=== PATIENT | female | born 1990 | race Caucasian/White ===

== ENCOUNTER 2023-01-31 13:08 | Emergency (ER) | payer SELFPAY ==
[2023-01-31 13:10] VITALS: BP 118/81
--- NOTE | 2023-01-31 13:39 | ED General ---
General Chief Complaint: Abdominal/GI Problems Stated Complaint: HYPERGLYCEMIA Nursing Triage Note: pt sent over via EMS from [facility] so c/o right flank pain and SOB x 1mo that's been getting progressively worse. pt woke up this morning with night sweats and pain upon inhalation. pt has hx of PEs and DVTs, most recent one was 6mo ago. pt has been without eliquis x 2 weeks. Source of Information: Patient Exam Limitations: No Limitations History of Present Illness Date Seen by Provider: Jan 31, 2023 Time Seen by Provider: 13:25 Initial Comments Patient is a 32-year-old female who presents to the emergency room with a chief complaint of right sided thoracic back pain just under her right shoulder blade onset x1 to 2 months. Patient states its been progressively getting worse, she takes Tylenol and ibuprofen without relief of symptoms. She went to [facility] walk-in today and they sent her to the emergency room for further evaluation. Patient has a history of multiple prior DVTs and pulmonary emboli. She states that she has been off of her blood thinners but restarted them about 2 weeks ago. She has significant financial challenges. She states her pain is worsened by movement and deep breath. No fevers or chills. No productive cough, no URI symptoms. Denies any dysuria, hematuria. States that she had a "miscarriage" a bout 2 weeks ago. No menstrual cycle since then. The provider at [facility] was concerned that she might have a blood clot in her kidney. On arrival patient is very agitated. Anxious because she has not had a cigarette all day. History of methamphetamine abuse. Timing/Duration: Other (1-2 months) Severity: Moderate (pain an "8") Modifying Factors: worse with Movement Associated Systoms: Shortness of Air (hurts to take a deep breath) Allergies and Home Medications Allergies Coded Allergies: gabapentin (Verified Allergy, Unknown, 01/31/23) Patient Home Medication List Home Medication List Reviewed: Yes Review of Systems Review of Systems Constitutional: see HPI EENTM: no symptoms reported Respiratory: short of breath Cardiovascular: other (righ tposterior rib pain) Gastrointestinal: no symptoms reported Genitourinary: no symptoms reported : No Musculoskeletal: back pain (right thoracic radiating don to hip) Skin: no symptoms reported Psychiatric/Neurological: Anxiety All Other Systems Reviewed Negative Unless Noted: Yes Past Janexsb-Onufaa-Geblpz Hx Patient Social History Tobacco Use?: Yes Tobacco type used: Cigarettes Smoking Status: Current Everyday Smoker Substance use?: Yes Substance type: Methamphetamine Alcohol Use?: No Pt feels they are or have been: No Physical Exam Vital Signs Vital Signs - First Documented 01/31/23 13:10 Pulse 87 Resp 18 B/P (MAP) 118/81 (93) Pulse Ox 95 O2 Delivery Room Air Capillary Refill : Less Than 3 Seconds Height, Weight, BMI Height: '" Weight: lbs. oz. kg; BMI Method: General Appearance: WD/WN, Anxious, Chronically ill Eyes: Bilateral Eye Normal Inspection, Bilateral Eye PERRL, Bilateral Eye EOMI HEENT: PERRL/EOMI Neck: Full Range of Motion Respiratory: Lungs Clear, Normal Breath Sounds, No Accessory Muscle Use, No Respiratory Distress Cardiovascular: Regular Rate, Rhythm, Normal Peripheral Pulses Gastrointestinal: Normal Bowel Sounds, Soft; No Distended; Tenderness (RUQ) Back: Normal Inspection, CVA Tenderness (R) Extremity: Normal Capillary Refill, Normal Inspection, Normal Range of Motion, Non Tender, Pedal Edema (1-2+ bilaterally L>R) Neurologic/Psychiatric: Alert, Oriented x3, No Motor/Sensory Deficits, 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 Norm as Tested, Other (anxious) Skin: Normal Color, Warm/Dry, Other (dirty, disshevelled and unkempt) Progress/Results/Core Measures Suspected Sepsis SIRS Temperature: Pulse: 87 Respiratory Rate: 18 Laboratory Tests 01/31/23 13:43: White Blood Count 8.6 Blood Pressure 118 /81 Mean: 93 Laboratory Tests 01/31/23 13:43: Creatinine 0.79, Platelet Count 323, Total Bilirubin 0.1 Results/Orders Lab Results Laboratory Tests Test 01/31/23 13:34 01/31/23 13:43 Range/Units Urine Color YELLOW Urine Clarity CLEAR Urine pH 7.0 5-9 Urine Specific [place] 1.015 L 1.016-1.022 Urine Protein NEGATIVE NEGATIVE Urine Glucose (UA) 3+ H NEGATIVE Urine Ketones NEGATIVE NEGATIVE Urine Nitrite NEGATIVE NEGATIVE Urine Bilirubin NEGATIVE NEGATIVE Urine Urobilinogen 0.2 < = 1.0 MG/DL Urine Leukocyte Esterase NEGATIVE NEGATIVE Urine RBC (Auto) NEGATIVE NEGATIVE Urine RBC NONE /HPF Urine WBC NONE /HPF Urine Squamous Epithelial Cells RARE /HPF Urine Crystals NONE /LPF Urine Bacteria NEGATIVE /HPF Urine Casts NONE /LPF Urine Mucus NEGATIVE /LPF Urine Culture Indicated NO White Blood Count 8.6 4.3-11.0 10^3/uL Red Blood Count 4.20 3.80-5.11 10^6/uL Hemoglobin 11.7 11.5-16.0 g/dL Hematocrit 35 35-52 % Mean Corpuscular Volume 84 80-99 fL Mean Corpuscular Hemoglobin 28 25-34 pg Mean Corpuscular Hemoglobin Concent 33 32-36 g/dL Red Cell Distribution Width 14.0 10.0-14.5 % Platelet Count 323 130-400 10^3/uL Mean Platelet Volume 11.7 9.0-12.2 fL Immature Granulocyte % (Auto) 0 % Neutrophils (%) (Auto) 79 H 42-75 % Lymphocytes (%) (Auto) 16 12-44 % Monocytes (%) (Auto) 5 0-12 % Eosinophils (%) (Auto) 0 0-10 % Basophils (%) (Auto) 0 0-10 % Neutrophils # (Auto) 6.8 1.8-7.8 10^3/uL Lymphocytes # (Auto) 1.4 1.0-4.0 10^3/uL Monocytes # (Auto) 0.4 0.0-1.0 10^3/uL Eosinophils # (Auto) 0.0 0.0-0.3 10^3/uL Basophils # (Auto) 0.0 0.0-0.1 10^3/uL Immature Granulocyte # (Auto) 0.0 0.0-0.1 10^3/uL Sodium Level 139 135-145 MMOL/L Potassium Level 5.0 3.6-5.0 MMOL/L Chloride Level 107 98-107 MMOL/L Carbon Dioxide Level 21 21-32 MMOL/L Anion Gap 11 5-14 MMOL/L Blood Urea Nitrogen 17 7-18 MG/DL Creatinine 0.79 0.60-1.30 MG/DL Estimat Glomerular Filtration Rate 103 BUN/Creatinine Ratio 22 Glucose Level 335 H 70-105 MG/DL Calcium Level 8.7 8.5-10.1 MG/DL Corrected Calcium 9.3 8.5-10.1 MG/DL Total Bilirubin 0.1 0.1-1.0 MG/DL Aspartate Amino Transf (AST/SGOT) 21 5-34 U/L Alanine Aminotransferase (ALT/SGPT) 16 0-55 U/L Alkaline Phosphatase 112 40-136 U/L Total Protein 6.6 6.4-8.2 GM/DL Albumin 3.2 3.2-4.5 GM/DL Serum Test, Qualitative NEGATIVE NEGATIVE My Orders Orders - JOHNNY CORRALES MD Ed Iv/Invasive Line Start (01/31/23 13:33) Cbc With Automated Diff (01/31/23 13:33) Comprehensive Metabolic Panel (01/31/23 13:33) Ua Culture If Indicated (01/31/23 13:33) Chest 1 View, Ap/Pa Only (01/31/23 13:33) Hcg,Qualitative Serum (01/31/23 13:33) Acetaminophen Tablet (Tylenol Tablet) (01/31/23 14:00) Hydroxyzine Cap/Tab (Vistaril) (01/31/23 14:15) Vital Signs/I&O 01/31/23 13:10 Pulse 87 Resp 18 B/P (MAP) 118/81 (93) Pulse Ox 95 O2 Delivery Room Air Capillary Refill : Less Than 3 Seconds Blood Pressure Mean: 93 Progress Note : Time: 14:23 Progress Note Notified by the patient's nurse, DIANA Guillen, that the patient chose to leave AMA. I had *just* been in the room to talk to her about her pain and anxiety. SHe had asked for tylenol and I offered VIstaril for her anxiety. She consented, then when Mindy brought them in to her, she declined and stated she wanted to leave, "because I havent had a cigarrette all day". Patient ambulated out of the department. Evaluation today includes physical exam, CBC, Chem-12, UA, chest x-ray. Differential diagnosis based on physical examination includes pyelonephritis, kidney stone, thrombosis of kidney. Labs reviewed, CBC within normal limits, chemistry shows elevated glucose at 335, normal renal function. No electrolyte disturbance. Urine shows 3+ glucose without any other abnormality. Patient had left AMA prior to chest x-ray and further imaging to evaluate abdomen/flank pain. Departure Impression Primary Impression: Right-sided thoracic back pain Qualified Codes: M54.6 - Pain in thoracic spine; G89.29 - Other chronic pain Additional Impressions: Hyperglycemia due to diabetes mellitus Medical non-compliance History of methamphetamine abuse Disposition: 07 AGAINST MEDICAL ADVICE Condition: Against Medical Advice JOHNNY CORRALES MD Jan 31, 2023 13:39
[2023-01-31 13:40] LABS: BILIRUBIN,URINE NEGATIVE (NEGATIVE); CLARITY,URINE CLEAR; COLOR,URINE YELLOW; GLUCOSE, URINE (UA) 3+ (NEGATIVE); KETONES,URINE NEGATIVE (NEGATIVE); LEUKOCYTE ESTERASE ,URINE NEGATIVE (NEGATIVE); NITRITE,URINE NEGATIVE (NEGATIVE); PROTEIN,URINE NEGATIVE (NEGATIVE)
[2023-01-31] MEDS: ACETAMINOPHEN 500 MG TAB (TYLENOL) PO ONE ×2 (14:06→14:07)
[2023-01-31] MEDS: hydrOXYzine (VISTARIL/ATARAX) 25 MG capsule/tablet PO ONE ×2 (14:06→14:07)
[2023-01-31 14:09] LABS: BACTERIA,URINE NEGATIVE /HPF; SQUAMOUS EPITHELIAL CELL,UR RARE /HPF
[2023-01-31 14:09] LABS: BASOPHILS % (AUTO) 0 % (0-10); EOSINOPHILS % (AUTO) 0 % (0-10); HEMATOCRIT 35 % (35-52); HEMOGLOBIN 11.7 g/dL (11.5-16.0); LYMPHOCYTES # (AUTO) 1.4 10^3/uL (1.0-4.0); LYMPHOCYTES % (AUTO) 16 % (12-44); MEAN CORPUSCULAR HEMOGLOBIN 28 pg (25-34); MEAN CORPUSCULAR HGB CONC 33 g/dL (32-36); MEAN CORPUSCULAR VOLUME 84 fL (80-99); MEAN PLATELET VOLUME 11.7 fL (9.0-12.2); MONOCYTES # (AUTO) 0.4 10^3/uL (0.0-1.0); MONOCYTES % (AUTO) 5 % (0-12); NEUTROPHILS # (AUTO) 6.8 10^3/uL (1.8-7.8); NEUTROPHILS % (AUTO) 79 % (42-75); PLATELET COUNT 323 10^3/uL (130-400); WHITE BLOOD COUNT 8.6 10^3/uL (4.3-11.0)
[2023-01-31 14:15] LABS: ALBUMIN 3.2 GM/DL (3.2-4.5)
[2023-01-31 14:17] LABS: CALCIUM 8.7 MG/DL (8.5-10.1)
[2023-01-31 14:18] LABS: TOTAL PROTEIN 6.6 GM/DL (6.4-8.2)
[2023-01-31 14:20] LABS: BILIRUBIN,TOTAL 0.1 MG/DL (0.1-1.0)
[2023-01-31 14:22] LABS: CREATININE SERUM 0.79 MG/DL (0.60-1.30)
== END 2023-01-31 14:15 | disposition left against medical advice (07) ==
LOC: ER 13:12
DX: M54.6 Pain in thoracic spine (principal); E11.65 Type 2 diabetes mellitus with hyperglycemia; F15.11 Other stimulant abuse, in remission; F17.210 Nicotine dependence, cigarettes, uncomplicated; Z91.199 Patient's noncompliance with other medical treatment and regimen due to unspecified reason; Z28.310 Unvaccinated for COVID-19
CPT/HCPCS: 36415; 80053; 81000; 84703; 85025

== ENCOUNTER 2023-03-09 13:29 | Inpatient (IN) | payer OTHER ==
[~2023-03-09] VITALS: Ht 170 cm; Wt 83.0 kg
--- NOTE | 2023-03-09 13:51 | ED Chest Pain ---
General Chief Complaint: General Problems/Pain Stated Complaint: LOWER BACK PAIN | COUGHING UP BLOOD Nursing Triage Note: PT AMB TO ROOM 3 PT STATES HAS BEEN COUGHING UP BLOOD, STATES HAS PE AND TUMOR IN BILATERAL LOWER LOBES. PT STATES HAS BEEN COUGHING UP BLOOD FOR A COUPLE DAYS. PT STATES TAKES ELIQUIS FOR PE. PT STATES HAS JUST FINISHED LEVAQUIN. PT WAS BROUGHT TO ED BY [facility] INSTEAD OF GOING TO [facility]. Source: patient Exam Limitations: no limitations History of Present Illness Date Seen by Provider: Mar 09, 2023 Time Seen by Provider: 13:48 Initial Comments Patient is a 32-year-old female with a history of methamphetamine use who presents ED for coughing up blood. She states she was seen here mid january for right upper thoracic back pain and had some blood in her sputum at that time. That improved until yesterday when she was coughing up bright red blood 1 episode and 2 episodes today. She was sent over from [facility]. She currently falls up with Dr. Pollard in [place]. states she has been coughing over the past few weeks. History of smoking. she states she has right upper thoracic back pain over the past year with associated shortness of breath and right sided chest pain with exertion. She was diagnosed with a PE currently on Eliquis. She states she has lesions on her liver. She has a history of thyroidectomy and cholecystectomy with a history of thyroid cancer. She believes she developed the PE secondary to her Port-A-Cath removal. patient denies fever, headache, dizziness, visual changes, unilateral muscle weakness or sensory changes. Currently using meth. Type I diabetic did use insulin today. Patient states she recently finished Levaquin secondary to fluid in her lungs. Allergies and Home Medications Allergies Coded Allergies: gabapentin (Verified Allergy, Unknown, 01/31/23) Patient Home Medication List Home Medication List Reviewed: Yes Divalproex Sodium (Divalproex Sodium) 250 Mg Tablet., 250 MG PO TID, (Reported) Entered as Reported by: HERMAN THOMAS on 03/09/23 630 Last Action: New Order Review of Systems Review of Systems Constitutional: No chills, No diaphoresis EENTM: No Eye Pain, No Mouth Pain, No Mouth Swelling Respiratory: Cough, Shortness of Air Cardiovascular: Chest Pain Gastrointestinal: Denies Abdominal Pain, Denies Diarrhea, Denies Nausea, Denies Vomiting Genitourinary: Denies Burning, Denies Discharge Musculoskeletal: No back pain, No joint pain Skin: No change in color, No change in hair/nails All Other Systems Reviewed Negative Unless Noted: Yes Physical Exam Vital Signs Vital Signs - First Documented 03/09/23 13:38 Temp 36.4 Pulse 90 Resp 16 B/P (MAP) 120/74 (89) Pulse Ox 100 Capillary Refill : Less Than 3 Seconds Height, Weight, BMI Height: '" Weight: lbs. oz. kg; 28.00 BMI Method: General Appearance: No Apparent Distress, WD/WN HEENT: PERRL/EOMI, TMs Normal, Normal ENT Inspection, Pharynx Normal Neck: Full Range of Motion, Normal Inspection, Non Tender, Supple Respiratory: Chest Non Tender, Lungs Clear, Normal Breath Sounds, Other (Right upper posterior neck tenderness) Cardiovascular: No Edema, No Gallop, No JVD, Tachycardia Gastrointestinal: Normal Bowel Sounds, No Organomegaly, No Pulsatile Mass, Non Tender Extremity: Normal Capillary Refill, Normal Inspection, Normal Range of Motion, Non Tender Neurologic/Psychiatric: Alert, Oriented x3, No Motor/Sensory Deficits, Normal 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, 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 Norm as Tested Skin: Normal Color, Warm/Dry Progress/Results/Core Measures Results/Orders Lab Results Laboratory Tests Test 03/09/23 14:03 03/09/23 14:30 03/09/23 14:40 03/09/23 15:41 Range/Units Glucometer 501 *H 70-110 MG/DL White Blood Count 10.5 4.3-11.0 10^3/uL Red Blood Count 4.71 3.80-5.11 10^6/uL Hemoglobin 12.8 11.5-16.0 g/dL Hematocrit 41 35-52 % Mean Corpuscular Volume 86 80-99 fL Mean Corpuscular Hemoglobin 27 25-34 pg Mean Corpuscular Hemoglobin Concent 32 32-36 g/dL Red Cell Distribution Width 13.2 10.0-14.5 % Platelet Count 303 130-400 10^3/uL Mean Platelet Volume 11.4 9.0-12.2 fL Immature Granulocyte % (Auto) 1 % Neutrophils (%) (Auto) 77 H 42-75 % Lymphocytes (%) (Auto) 18 12-44 % Monocytes (%) (Auto) 3 0-12 % Eosinophils (%) (Auto) 1 0-10 % Basophils (%) (Auto) 0 0-10 % Neutrophils # (Auto) 8.0 H 1.8-7.8 10^3/uL Lymphocytes # (Auto) 1.9 1.0-4.0 10^3/uL Monocytes # (Auto) 0.3 0.0-1.0 10^3/uL Eosinophils # (Auto) 0.1 0.0-0.3 10^3/uL Basophils # (Auto) 0.0 0.0-0.1 10^3/uL Immature Granulocyte # (Auto) 0.1 0.0-0.1 10^3/uL Prothrombin Time 13.3 12.2-14.7 SEC INR Comment 1.0 0.8-1.4 Activated Partial Thromboplast Time 27 24-35 SEC Sodium Level 130 L 135-145 MMOL/L Potassium Level 5.9 H 3.6-5.0 MMOL/L Chloride Level 97 L 98-107 MMOL/L Carbon Dioxide Level 19 L 21-32 MMOL/L Anion Gap 14 5-14 MMOL/L Blood Urea Nitrogen 20 H 7-18 MG/DL Creatinine 1.25 0.60-1.30 MG/DL Estimat Glomerular Filtration Rate 59 BUN/Creatinine Ratio 16 Glucose Level 594 *H 70-105 MG/DL Calcium Level 8.3 L 8.5-10.1 MG/DL Corrected Calcium 8.8 8.5-10.1 MG/DL Magnesium Level 1.8 1.6-2.4 MG/DL Total Bilirubin 0.3 0.1-1.0 MG/DL Aspartate Amino Transf (AST/SGOT) 22 5-34 U/L Alanine Aminotransferase (ALT/SGPT) 22 0-55 U/L Alkaline Phosphatase 113 40-136 U/L Myoglobin 27.3 10.0-92.0 NG/ML Troponin I < 0.028 <0.028 NG/ML B-Type Natriuretic Peptide 11.9 <100.0 PG/ML Total Protein 6.5 6.4-8.2 GM/DL Albumin 3.4 3.2-4.5 GM/DL Lipase 4 L 8-78 U/L Beta-Hydroxybutyrate (Chem panel) 3.03 H 0.00-0.27 MMOL/L Urine Color YELLOW Urine Clarity CLEAR Urine pH 6.0 5-9 Urine Specific [place] <=1.005 1.016-1.022 Urine Protein NEGATIVE NEGATIVE Urine Glucose (UA) 3+ H NEGATIVE Urine Ketones 2+ H NEGATIVE Urine Nitrite NEGATIVE NEGATIVE Urine Bilirubin NEGATIVE NEGATIVE Urine Urobilinogen 0.2 < = 1.0 MG/DL Urine Leukocyte Esterase NEGATIVE NEGATIVE Urine RBC (Auto) 2+ H NEGATIVE Urine RBC 5-10 H /HPF Urine WBC NONE /HPF Urine Squamous Epithelial Cells RARE /HPF Urine Crystals NONE /LPF Urine Bacteria NEGATIVE /HPF Urine Casts NONE /LPF Urine Mucus NEGATIVE /LPF Urine Culture Indicated NO Urine Opiates Screen POSITIVE H NEGATIVE Urine Oxycodone Screen NEGATIVE NEGATIVE Urine Methadone Screen NEGATIVE NEGATIVE Urine Propoxyphene Screen NEGATIVE NEGATIVE Urine Barbiturates Screen NEGATIVE NEGATIVE Ur Tricyclic Antidepressants Screen POSITIVE H NEGATIVE Urine Phencyclidine Screen NEGATIVE NEGATIVE Urine Amphetamines Screen POSITIVE H NEGATIVE Urine Methamphetamines Screen POSITIVE H NEGATIVE Urine Benzodiazepines Screen NEGATIVE NEGATIVE Urine Cocaine Screen NEGATIVE NEGATIVE Urine Cannabinoids Screen NEGATIVE NEGATIVE Blood Gas Puncture Site LEFT RADIAL Blood Gas Patient Temperature 37 Arterial Blood pH 7.36 L 7.37-7.43 Arterial Blood Partial Pressure CO2 36 35-45 MMHG Arterial Blood Partial Pressure O2 80 79-93 MMHG Arterial Blood HCO3 20 L 23-27 MMOL/L Arterial Blood Total CO2 20.7 L 21.0-31.0 MMOL/L Arterial Blood Oxygen Saturation 96 94-100 % Arterial Blood Base Excess -4.9 L -2.5-2.5 MMOL/L Surjit Test POSITIVE Blood Gas Ventilator Setting NO Blood Gas Inspired Oxygen N/A Test 03/09/23 16:25 Range/Units Glucometer 405 *H 70-110 MG/DL My Orders Orders - SOFI ARAIZA Cbc With Automated Diff (03/09/23 13:46) Magnesium (03/09/23 13:46) Ekg Tracing (03/09/23 13:46) Comprehensive Metabolic Panel (03/09/23 13:46) Myoglobin Serum (03/09/23 13:46) Protime With Inr (03/09/23 13:46) Partial Thromboplastin Time (03/09/23 13:46) Monitor-Rhythm Ecg Trace Only (03/09/23 13:46) Ed Iv/Invasive Line Start (03/09/23 13:46) Lipase (03/09/23 13:46) Bnp Emery (03/09/23 13:46) Troponin I Emery (03/09/23 13:46) Ct Fior Chest/Noang Abd-Pelv W (03/09/23 13:46) Beta Hydroxybutyrate (03/09/23 14:33) Urinalysis (03/09/23 14:33) Drug Screen Stat (Urine) (03/09/23 14:33) Ns Iv 1000 Ml (Sodium Chloride 0.9%) (03/09/23 14:45) Iohexol Injection (Omnipaque 350 Mg/Ml 1 (03/09/23 15:00) Received Contrast (Hold Metformin- Contr (03/09/23 15:00) Ns (Ivpb) (Sodium Chloride 0.9% Ivpb Bag (03/09/23 15:00) Insulin (Regular) Human (Novolin R (Per (03/09/23 15:15) Sodium Polystyrene Powder (Kayexalate P (03/09/23 15:15) Arterial Blood Gas (03/09/23 15:44) Arterial Blood Draw - Obtain (03/09/23 ) Cefepime Injection (Maxipime Injection) (03/09/23 16:45) Ed Admission (Communication) (03/09/23 16:58) Medications Given in ED Vital Signs/I&O 03/09/23 13:38 Temp 36.4 Pulse 90 Resp 16 B/P (MAP) 120/74 (89) Pulse Ox 100 Blood Pressure Mean: 89 Comment Sinus rhythm, 81 bpm, QRS duration 89 MS, QTc 452 MS Departure Communication (Admissions) Time/Spoke to Admitting Phy: 16:[address] Garcia who accepts patient ICU inpatient DKA protocol. Communication (PCP) Reviewed previous ER visits, H&P, lab testing. Type I diabetic currently on insulin. Chronic PE currently on Eliquis. History of methamphetamine use. Cough shortness of breath chest pain, upper back pain, coughing up bright red blood sputum. Does not appear to be projectile vomiting or gross blood. Recently finished Levaquin concerning for pneumonia. Patient with a history of IV drug use. Due to current complaint coughing up blood CT scan of the chest, abdomen was ordered. CBC, CMP, lipase and cardiac work-up. Urinalysis with drug screen. CBC grossly unremarkable. Normal white blood count and hemoglobin. Chemistry showed sodium 130, chloride 97, potassium of 5.9, anion gap of 14, beta hydroxybutyrate of 3, troponin normal. EKG sinus rhythm without evidence of ST elevation depression. She states she does have chest pain with exertion likely secondary to her PE. No appreciation of fluid overload. No lower extremity swelling. Patient blood sugar was 5.94. EKG did not show any evidence of hyperacute T waves. Patient was given 10 units of insulin. Kayexalate [address] scan of the chest concerning for bilateral pulmonary emboli which are most likely chronic in nature. No features of right ventricular strain or pulmonary hypertension. Consolidation in right lower lobe suggesting pneumonia. 2 interdeterminant liver lesions likely benign. She is aware of the liver lesions. Patient was given 2 L of fluid here. She was a difficult IV stick. Was able to use ultrasound-guided and placed 2 IVs. Patient was started on cefepime. We will add on vancomycin secondary to the meth use. Patient was discussed with Dr. Garcia hospitalist who agreed to accept patient. She recommends starting on a insulin drip for mild DKA. Patient is dehydrated. Fluid resuscitation. Urinalysis did note ketones. No evidence infection. Positive for methamphetamine. She states she will order anticoagulant Lovenox. Impression Primary Impression: Pneumonia Additional Impressions: Pulmonary embolism DKA (diabetic ketoacidosis) Disposition: ADMITTED INPATIENT Condition: Stable Admissions Decision to Admit Reason: Admit from ER (General) Decision to Admit/Date: Mar 09, 2023 Time/Decision to Admit Time: 16:17 Departure-Patient Inst. Referrals: [facility] (PCP/Family) Primary Care Physician SOFI ARAIZA Mar 09, 2023 13:51
[2023-03-09] MEDS ORDERED: NS IV 1000 ML 1,000 ML IV STA (14:45)
[2023-03-09 14:51] LABS: BASOPHILS % (AUTO) 0 % (0-10); EOSINOPHILS # (AUTO) 0.1 10^3/uL (0.0-0.3); EOSINOPHILS % (AUTO) 1 % (0-10); HEMATOCRIT 41 % (35-52); HEMOGLOBIN 12.8 g/dL (11.5-16.0); LYMPHOCYTES # (AUTO) 1.9 10^3/uL (1.0-4.0); LYMPHOCYTES % (AUTO) 18 % (12-44); MEAN CORPUSCULAR HEMOGLOBIN 27 pg (25-34); MEAN CORPUSCULAR HGB CONC 32 g/dL (32-36); MEAN CORPUSCULAR VOLUME 86 fL (80-99); MEAN PLATELET VOLUME 11.4 fL (9.0-12.2); MONOCYTES # (AUTO) 0.3 10^3/uL (0.0-1.0); MONOCYTES % (AUTO) 3 % (0-12); NEUTROPHILS % (AUTO) 77 % (42-75); PLATELET COUNT 303 10^3/uL (130-400); WHITE BLOOD COUNT 10.5 10^3/uL (4.3-11.0)
[2023-03-09 14:52] LABS: BILIRUBIN,URINE NEGATIVE (NEGATIVE); CLARITY,URINE CLEAR; COLOR,URINE YELLOW; GLUCOSE, URINE (UA) 3+ (NEGATIVE); KETONES,URINE 2+ (NEGATIVE); LEUKOCYTE ESTERASE ,URINE NEGATIVE (NEGATIVE); NITRITE,URINE NEGATIVE (NEGATIVE); PROTEIN,URINE NEGATIVE (NEGATIVE)
[2023-03-09] MEDS ORDERED: NS 100 ML (IVPB) BAG IV ONE (15:00)
[2023-03-09] MEDS ORDERED: IOHEXOL 350 MG/ML 100 ML (OMNIPAQUE 350) VIAL IV ONE (15:00)
[2023-03-09] MEDS ORDERED: HOLD METFORMIN - RECEIVED CONTRAST 20 ML VIAL IV SCH (15:00)
[2023-03-09 15:07] LABS: ALBUMIN 3.4 GM/DL (3.2-4.5); POTASSIUM 5.9 MMOL/L (3.6-5.0)
[2023-03-09 15:09] LABS: CALCIUM 8.3 MG/DL (8.5-10.1); PROTHROMBIN TIME PATIENT 13.3 SEC (12.2-14.7)
[2023-03-09 15:10] LABS: TOTAL PROTEIN 6.5 GM/DL (6.4-8.2)
[2023-03-09 15:12] LABS: BILIRUBIN,TOTAL 0.3 MG/DL (0.1-1.0)
[2023-03-09 15:13] LABS: CREATININE SERUM 1.25 MG/DL (0.60-1.30)
[2023-03-09 15:14] LABS: BACTERIA,URINE NEGATIVE /HPF; SQUAMOUS EPITHELIAL CELL,UR RARE /HPF
[2023-03-09] MEDS ORDERED: inSUlin (REGULAR) HUMAN 1 UNIT/0.01 ML (CHARGE PER UNIT) IV ONE (15:15)
[2023-03-09] MEDS ORDERED: SODIUM POLYSTYRENE POWDER 15 GM BOTTLE PO ONE (15:15)
[2023-03-09 15:16] LABS: AMPHETAMINE SCREEN, URINE POSITIVE (NEGATIVE); BARBITURATE SCREEN URINE NEGATIVE (NEGATIVE); BENZODIAZEPINES SCREEN URINE NEGATIVE (NEGATIVE); CANNABINOID SCREEN, URINE NEGATIVE (NEGATIVE); COCAINE SCREEN URINE NEGATIVE (NEGATIVE); METHADONE STAT NEGATIVE (NEGATIVE); OPIATE SCREEN URINE POSITIVE (NEGATIVE); OXYCODONE STAT NEGATIVE (NEGATIVE); PROPOXYPHENE STAT NEGATIVE (NEGATIVE); TRICYCLIC ANTIDEPRESSANTS SCRE POSITIVE (NEGATIVE)
[2023-03-09 15:17] LABS: MAGNESIUM 1.8 MG/DL (1.6-2.4)
[2023-03-09 15:48] LABS: ABG BASE EXCESS -4.9 MMOL/L (-2.5-2.5); ABG OXYGEN SATURATION 96 % (94-100); ABG PCO2 36 MMHG (35-45); ABG PH 7.36 (7.37-7.43); ABG PO2 80 MMHG (79-93); ABG TCO2 20.7 MMOL/L (21.0-31.0); ALLENS TEST POSITIVE; PATIENT TEMP 37; VENTILATOR NO
--- NOTE | 2023-03-09 16:03 | Diagnostic Imaging Report ---
INDICATION: Hemoptysis. History of pulmonary emboli. CTA chest, abdomen and pelvis Thin axial sections through the chest, abdomen and pelvis are obtained following intravenous contrast bolus. Multiplanar MIP images were reconstructed and reviewed. All CT scans use one or more of the following dose optimizing techniques: automated exposure control, MA and/or KvP adjustment based on patient size and exam type or iterative reconstruction. COMPARISON: None available. FINDINGS: CTA CHEST: There are age-indeterminate pulmonary emboli involving the bilateral lower lobes. Chronic appearing truncation in the right upper lobe pulmonary artery. Peripheral emboli within the distal right main pulmonary artery has a chronic appearance. No dilation of pulmonary trunk. No abnormal enlargement of the right ventricle. No pericardial effusion. No pleural effusion or pneumothorax. No supraclavicular or axillary lymphadenopathy. No mediastinal lymphadenopathy. There is 1.3 x 1.0 cm right hilar lymph node. No left hilar lymphadenopathy. Patchy consolidations are present in the periphery of the right lower lobe. No concerning focal osseous lesions in the chest. CT ABDOMEN AND PELVIS: There are 2 indeterminate hypodensities within the liver, the larger is centrally located measuring 1.8 x 1.6 cm. The spleen and pancreas are normal. No adrenal mass. No renal mass or obstructive uropathy. The urinary bladder is normally filled without wall thickening. Uterus and ovaries are normal. No bowel obstruction or pericolonic inflammatory change. A large amount of stool is present throughout the colon. Normal caliber abdominal aorta. The IVC appears patent. No concerning focal osseous lesions. No abdominal or pelvic lymphadenopathy. IMPRESSION: 1. Bilateral pulmonary emboli which are most likely chronic in nature. There is a possibility that a left lower lobe pulmonary embolus could be acute. Correlation with outside imaging would be most beneficial as patient has known pulmonary emboli per provided history. 2. No features of right ventricular strain or pulmonary hypertension. 3. Patchy right lower lobe consolidations are likely due to pneumonia. 4. Mildly enlarged right hilar lymph nodes may be reactive in nature. 5. There are 2 indeterminate liver lesions that are probably benign, but again correlation with outside imaging would be most beneficial. Dictated by: Dictated on workstation # [id number]
[2023-03-09] MEDS ORDERED: CEFEPIME INJECTION 1,000 MG in NS (IVPB) 50 ML IV ONE (16:45)
[2023-03-09] MEDS ORDERED: NS IV 500 ML 500 ML IV PRN (18:00)
[2023-03-09] MEDS ORDERED: CEFEPIME INJECTION 1,000 MG in NS (IVPB) 50 ML IV SCH (18:00)
[2023-03-09] MEDS ORDERED: polyethylene glycoL POWDER 17 GM (MIRALAX) PACK PO PRN (18:00)
[2023-03-09] MEDS ORDERED: ACETAMINOPHEN 325 MG TABLET PO PRN (18:00)
[2023-03-09] MEDS ORDERED: ONDANSETRON 4 MG (ZOFRAN) ORAL DISSOLVE TAB PO PRN (18:00)
[2023-03-09] MEDS ORDERED: ONDANSETRON 4 MG/2 ML (SDV) Z0FRAN IV PRN (18:00)
[2023-03-09] MEDS ORDERED: MELATONIN 3 MG TABLET PO PRN (18:00)
[2023-03-09] MEDS ORDERED: MILK OF MAGNESIA 400 MG/5 ML 30 ML UDC PO PRN (18:00)
[2023-03-09] MEDS ORDERED: ENOXAPARIN 100 MG/1 ML (LOVENOX) SYR SC SCH (18:00)
[2023-03-09] MEDS ORDERED: HYDROmorphone 2 MG/ML VIAL (DILAUDID) IV PRN (18:00)
[2023-03-09] MEDS ORDERED: LORazepam INJ 2 MG/ML (ATIVAN) VIAL IVP PRN (18:00)
[2023-03-09] MEDS ORDERED: diphenhydrAMINE 50 MG/ML INJ (BENADRYL) IVP PRN (18:00)
[2023-03-09] MEDS ORDERED: DexMEDEtomidine 250 ML DRIP 250 ML IV SCH (18:00)
[2023-03-09] MEDS ORDERED: LORazepam 0.5 MG (ATIVAN) TABLET PO PRN (18:00)
[2023-03-09] MEDS ORDERED: LACTULOSE SYRUP 10GM/15ML (ENULOSE) 30ML UDC PO PRN (18:00)
[2023-03-09] MEDS ORDERED: POTASSIUM CL 10MEQ/50ML IVPB 50 ML IV SCH (18:00)
[2023-03-09] MEDS ORDERED: ANTACID SUSP 30 ML UDC (MYLANTA) PO PRN (18:00)
[2023-03-09] MEDS ORDERED: CALCIUM CARBONATE 500 MG (TUMS) TAB.CHEW PO PRN (18:00)
[2023-03-09] MEDS ORDERED: BISACODYL 10 MG SUPP (DULCOLAX) PR PRN (18:00)
[2023-03-09] MEDS ORDERED: diphenhydrAMINE 25 MG TAB (BENADRYL) PO PRN (18:00)
[2023-03-09] MEDS ORDERED: 1/2 NS IV SOLUTION 1,000 ML IV SCH (18:00)
[2023-03-09] MEDS ORDERED: VANCOMYCIN INJECTION 0.1 MG in NS (IVPB) 250 ML IV SCH (18:00)
[2023-03-09] MEDS ORDERED: D5 1/2 NS 1000 ML IV SOLUTION 1,000 ML IV SCH (18:00)
[2023-03-09] MEDS ORDERED: VANCOMYCIN 1250 MG/NS 250 ML PREMIX IV NR (18:30)
[2023-03-09] MEDS ORDERED: guaiFENesin/DM (ROBITUSSIN DM) 10 ML UDC PO PRN (18:30)
[2023-03-09] MEDS ORDERED: DIVA-74 PO (18:32)
--- NOTE | 2023-03-09 18:32 | Tele-ICU Consult ---
History of Present Illness History of Present Illness Date Seen by Provider: Mar 09, 2023 Time Seen by Provider: 18:31 Date of Admission History of Present Illness (Tele-ICU Physician , consultation as per request of PCP Service provided via interactive audio and video telecommunStudioNow E-CARE system to a patient admitted to ICU bed in [facility]. Available chart/ vitals / labs / Images reviewed H&P is from ER notes Patient's information available about PMH, Shx, Fhx allergy reviewed inEMR. ROS as per chart and RN report Now in ICU, hemodynamically stable Video assessment done using teleICU camera, rest of exam as per RN Discussed with RN. Hospital course: 03/09 - hemoptysis A/P Hemoptysis ( h/o PE currently on Eliquis ) - small RLL infiltrates vs broken vessels with cough - if hemoptysis significant will hold eliquis and follow - cough suppressants Cough for 2 weeks - finished Levaquin [facility] RN - CT with small RLL infiltrate - sputum cx ordered , empiric abx started - follow h/o PE - as per patient - due to Port-A-Cath - CTA 03/09 in ER - Bilateral pulmonary emboli which are most likely chronic, no CT features of right ventricular strain or pulmonary HTN - cont eliquis Hyperglycemia DM type I - mild DKA - will recheck BMP and will start insulin gtt vs SQ Hyperkalemia - received insulin and IVF - follow h/o thyroid cancer CT with 2 indeterminate liver lesions that are probably benign- as per radiology - as per PCP w/up Currently using meth. - also positive for tricyclic and opioids - monitor for withdrawal Lines : , (Central Line Necessity Reviewed) [place]: OG: Nutrition: po Analgesia: Anxiety/ delirium VTE Prophylaxis: eliquis Stress Ulcer Prophylaxis: ppi Glycemic Control: Plans in collaboration with bedside consultants and IM MDs. Discussed with RN to reach out if any questions or concerns A total of 31 minutes of critical care time was devoted to this patient today, required to treat and/or prevent further deterioration of critical care condition ( as above ) . I am remotely monitoring this patient from another state. I am unable to do the bedside exam, and history/physical and pertinent information is taken from other notes in the computer and bedside staff. . Allergies and Home Medications Allergies Coded Allergies: gabapentin (Verified Allergy, Unknown, 3/12/23) Past Medical/Social/Family Hx Patient Social History Tobacco Use?: Yes Tobacco type used: Cigarettes Smoking Status: Current Everyday Smoker Use of E-Cig and/or Vaping dev: No Substance use?: No Substance type: Methamphetamine CLEAN FOR 7 MONTHS Alcohol Use?: No Additional alcohol type: HAS NOT DRANK FOR 3 YEARS Pt stated abuse/neglect: Yes Immunizations Up To Date Influenza Vaccine Up-to-Date: No; Not Current First/Initial COVID19 Vaccinat: YES Current Status status: Unknown Advance Directives: No Communicates: Verbally Primary Language: [place] Preferred Spoken Language: [place] Is interpretation needed?: No Implanted or Applied Medical D: None Review of Systems Constitutional: see HPI Focused Exam Height, Weight, BMI Height: '" Weight: lbs. oz. kg; 28.71 BMI Method: Exam Exam Patient acknowledged, consented, and participated in this virtual visit which was conducted using real time audio/video Vital Signs Date Time Temp Pulse Resp B/P (MAP) Pulse Ox O2 Delivery O2 Flow Rate FiO2 03/09/23 18:15 101 40 109/99 (102) 100 Room Air 03/09/23 18:03 98 03/09/23 18:00 87 108/70 (83) Room Air 03/09/23 17:54 88 16 120/93 99 Room Air 03/09/23 13:38 36.4 90 16 120/74 (89) 100 Height & Weight Height: '" Weight: lbs. oz. kg; 28.71 BMI Method: General Appearance: No Apparent Distress Capillary Refill: Less Than 3 Seconds Results Lab Laboratory Tests 03/09/23 14:30 Assessment/Plan Assessment/Plan 1 ARIC KNUTSON MD Mar 09, 2023 18:32
[2023-03-09 18:34] LABS: POTASSIUM 4.9 MMOL/L (3.6-5.0)
[2023-03-09 18:35] LABS: CALCIUM 7.9 MG/DL (8.5-10.1)
[2023-03-09 18:40] LABS: CREATININE SERUM 1.06 MG/DL (0.60-1.30)
[2023-03-09] MEDS: ENOXAPARIN 80 MG/0.8 ML (LOVENOX) SYR SC SCH (18:42)
[2023-03-09 19:07] VITALS: BP 113/72
[2023-03-09] MEDS ORDERED: RT-ALBUTEROL SULF 2.5 MG/3 ML PRE-MIX VIAL INH PRN (19:15)
[2023-03-09] MEDS: SENNOSIDES 8.6 MG (SENOKOT) TAB PO SCH (20:34)
[2023-03-09] MEDS: DOCUSATE SODIUM 100 MG (COLACE) CAP PO SCH (20:34)
[2023-03-09] MEDS: NS IV 1000 ML 1,000 ML IV SCH ×2 (20:34→21:24)
[2023-03-09 21:18] LABS: POTASSIUM 4.5 MMOL/L (3.6-5.0)
[2023-03-09 21:19] LABS: CALCIUM 7.5 MG/DL (8.5-10.1)
[2023-03-09] MEDS ORDERED: NS IV 1000 ML 1,000 ML ONE (21:22)
[2023-03-09 21:24] LABS: CREATININE SERUM 0.99 MG/DL (0.60-1.30)
[2023-03-09] MEDS: LACTATED RINGERS 1,000 ML IV SCH (22:48)
[2023-03-09] MEDS: D5 LR IV SOLUTION 1,000 ML IV SCH (23:19)
[2023-03-09] MEDS: CEFEPIME INJECTION 1,000 MG in NS (IVPB) 50 ML IV SCH (23:20)
[2023-03-10] MEDS: POTASSIUM CL 10MEQ/50ML IVPB 50 ML IV SCH ×5 (01:15→10:54)
[2023-03-10 01:25] LABS: POTASSIUM 3.4 MMOL/L (3.6-5.0)
[2023-03-10 01:26] LABS: CALCIUM 7.3 MG/DL (8.5-10.1)
[2023-03-10] MEDS: D5 LR IV SOLUTION 1,000 ML IV SCH ×4 (01:26→11:40)
[2023-03-10] MEDS: LACTATED RINGERS 1,000 ML IV SCH ×4 (01:26→11:40)
[2023-03-10 01:31] LABS: CREATININE SERUM 0.77 MG/DL (0.60-1.30)
[2023-03-10 05:43] LABS: BASOPHILS % (AUTO) 1 % (0-10); EOSINOPHILS # (AUTO) 0.1 10^3/uL (0.0-0.3); EOSINOPHILS % (AUTO) 2 % (0-10); HEMATOCRIT 33 % (35-52); HEMOGLOBIN 10.5 g/dL (11.5-16.0); LYMPHOCYTES # (AUTO) 2.3 10^3/uL (1.0-4.0); LYMPHOCYTES % (AUTO) 39 % (12-44); MEAN CORPUSCULAR HEMOGLOBIN 27 pg (25-34); MEAN CORPUSCULAR HGB CONC 32 g/dL (32-36); MEAN CORPUSCULAR VOLUME 85 fL (80-99); MONOCYTES # (AUTO) 0.3 10^3/uL (0.0-1.0); MONOCYTES % (AUTO) 5 % (0-12); NEUTROPHILS # (AUTO) 3.2 10^3/uL (1.8-7.8); NEUTROPHILS % (AUTO) 53 % (42-75); PLATELET COUNT 231 10^3/uL (130-400); WHITE BLOOD COUNT 5.9 10^3/uL (4.3-11.0)
[2023-03-10 05:58] LABS: ALBUMIN 2.5 GM/DL (3.2-4.5); BILIRUBIN,TOTAL 0.2 MG/DL (0.1-1.0); CALCIUM 7.4 MG/DL (8.5-10.1); CREATININE SERUM 0.67 MG/DL (0.60-1.30); MAGNESIUM 1.6 MG/DL (1.6-2.4); PHOSPHORUS 3.3 MG/DL (2.3-4.7); POTASSIUM 3.7 MMOL/L (3.6-5.0); TOTAL PROTEIN 4.9 GM/DL (6.4-8.2)
[2023-03-10] MEDS ORDERED: MAGNESIUM 1 GM/100 ML IVPB 100 ML IV SCH (06:00)
[2023-03-10] MEDS ORDERED: POTASSIUM CL 10MEQ/50ML IVPB 50 ML IV SCH (06:00)
[2023-03-10] MEDS ORDERED: KCL 20 MEQ TAB (K-DUR) PO SCH (06:00)
[2023-03-10] MEDS: ENOXAPARIN 80 MG/0.8 ML (LOVENOX) SYR SC SCH (06:29)
[2023-03-10] MEDS: CEFEPIME INJECTION 1,000 MG in NS (IVPB) 50 ML IV SCH ×2 (06:30→11:39)
[2023-03-10] MEDS: inSUlin ASPART (NovoLOG) 1 UNIT/0.01 ML (CHARGE PER UNIT) SC SCH ×2 (06:35→11:39)
[2023-03-10] MEDS ORDERED: POTASSIUM CL 10MEQ/50ML IVPB 100 ML IV ONE (06:42)
[2023-03-10] MEDS ORDERED: MAGNESIUM 1 GM/100 ML IVPB 400 ML IV ONE (06:43)
[2023-03-10] MEDS: MAGNESIUM 1 GM/100 ML IVPB 100 ML IV SCH ×4 (06:46→09:02)
[2023-03-10] MEDS ORDERED: VANCOMYCIN 1 GM/NS 250 ML IVPB IV SCH ×2 (07:00)
[2023-03-10 08:07] VITALS: BP 117/89
[2023-03-10] MEDS ORDERED: RT-ALBUTEROL SULF 2.5 MG/3 ML PRE-MIX VIAL INH PRN ×2 (08:30→11:45)
[2023-03-10] MEDS: DOCUSATE SODIUM 100 MG (COLACE) CAP PO SCH (09:00)
[2023-03-10] MEDS: SENNOSIDES 8.6 MG (SENOKOT) TAB PO SCH (09:00)
[2023-03-10] MEDS ORDERED: METO50TA15 PO (11:31)
[2023-03-10] MEDS ORDERED: FOLI1TAB33 PO (11:31)
[2023-03-10] MEDS ORDERED: FLUT1AER5 IH (11:31)
[2023-03-10] MEDS ORDERED: LEVO125T6 PO (11:31)
[2023-03-10] MEDS ORDERED: APIX5TAB PO (11:31)
[2023-03-10] MEDS ORDERED: QUET50TA93 PO (11:31)
[2023-03-10] MEDS ORDERED: TIOT4MIS2 IH (11:31)
[2023-03-10] MEDS ORDERED: MONT-40 PO (11:31)
[2023-03-10] MEDS ORDERED: RT-ALBUINH INH (11:31)
[2023-03-10] MEDS ORDERED: INSU100I30 SQ (11:31)
[2023-03-10] MEDS ORDERED: INSU100I23 SQ (11:31)
[2023-03-10] MEDS ORDERED: FURO20TA4 PO (11:31)
[2023-03-10] MEDS ORDERED: CYCL10TA25 PO (11:31)
[2023-03-10] MEDS ORDERED: AMOX1TAB12 PO (11:37)
[2023-03-10] MEDS ORDERED: OXC5T PO (11:37)
[2023-03-10] MEDS ORDERED: CYCLOBENZAPRINE 10 MG (FLEXERIL) TAB PO PRN (12:00)
[2023-03-10] MEDS ORDERED: inSUlin ASPART (NovoLOG) 1 UNIT/0.01 ML (CHARGE PER UNIT) SQ SCH (12:00)
[2023-03-10] MEDS ORDERED: RT--FLUTICASONE/SALMETEROL 232-14 (AIRDUO RespiCLICK) IH SCH (12:02)
[2023-03-10] MEDS ORDERED: DIVALPROEX 250 MG DELAYED RELEASE (DEPAKOTE) TAB PO SCH (13:00)
--- NOTE | 2023-03-10 13:10 | Short Stay Summary-Hospitalist ---
BARBARA MCKEON 03/10/23 1310: History of Present Illness HPI/Chief Complaint This patient is a 32 year old female with a past medical history significant for DM type 1, Hx PE and on eliquis, Hx liver lesions, Hx thyroid cancer post thyroidectomy, and substance abuse disorder including methamphetamines. She presented to the ED in the evening of 03/10 for hemoptysis that has been ongoing since a previous admission in January. She has had right upper thoracic back pain during this time. She recently finished a prescription for levofloxacin in the outpatient setting and didn't notice an improvement in symptoms. When pt. presented to the ED her vitals were stable on room air, but she was found to be in mild DKA with Blood sugar 594, B-hydroxybutyrate of 3.03, AG 14. Her ABG was 7.36|36|80. Her urinalysis was positive for Ketones, Glucose, and RBC. She was hyperkalemic at 5.9. Toxicology was positive for opiates, tricyclics, amphetamines, and methamphetamines.CTA chest/abd/pelvis revealed bilateral pulmonary emboli that per the report was likely chronic in nature although unable to confirm chronicity without previous imaging as well as patchy RLL consolidation likely due to pneumonia. She was admitted to the ICU for DKA protocol and IV abx with Vanc and Cefepime were initiated as was therapeutic lovenox. When seen this morning she reports continued Right upper thoracic back pain and SOB, although improved slightly. Her labwork has improved significantly with her blood sugars in the 100's since 0200, and K+ improved to 3.7. She is on room air. When asked about positive toxicology screen she denied any illicit drug use in the previous 7 months including last meth use. Per nursing, the patient has been refusing proper lab draws, her ABG, and CXR this morning. She also reportedly has a vape pen that she has been hiding and using periodically despite their attempt to find and remove said pen. Source: patient Date Seen 03/10/23 Time Seen by a Provider: 09:00 [facility]: Lori Garibay DO Attending Physician: Lori Garibay DO Referring Physician Date of Admission Mar 09, 2023 at 17:51 Home Medications & Allergies Home Medications Reviewed patient Home Medication Reconciliation performed by pharmacy medication reconciliations medical delivery technician and/or nursing. Patients Allergies have been reviewed. Allergies Allergies Coded Allergies gabapentin (Verified Allergy, Unknown, 01/31/23) Past Medical/Social/Family Hx Patient Social History Tobacco Use?: Yes Tobacco type used: Cigarettes Smoking Status: Current Everyday Smoker Use of E-Cig and/or Vaping dev: Yes Substance use?: Yes Substance type: Methamphetamine CLEAN FOR 7 MONTHS Alcohol Use?: No Additional alcohol type: HAS NOT DRANK FOR 3 YEARS Pt stated abuse/neglect: Yes Immunizations Up To Date Influenza Vaccine Up-to-Date: No; Not Current First/Initial COVID19 Vaccinat: YES Current Status status: Unknown Advance Directives: No Communicates: Verbally Primary Language: Belarusian Preferred Spoken Language: [place]ian Is interpretation needed?: No Implanted or Applied Medical D: None Past Medical History DM Type 1 Hx Thyroid Cancer w/ thyroidectomy Hx PE Hx Liver lesions Family Medical History Family Hx: Pt. is adopted and doesn't know biological family history Review of Systems Constitutional: No chills, No fever EENTM: No hearing loss, No vision loss Respiratory: cough, dyspnea on exertion, hemoptysis (small amount reported), short of breath Cardiovascular: No chest pain, No palpitations Gastrointestinal: No abdominal pain Genitourinary: No dysuria, No hematuria Musculoskeletal: back pain (Right upper thoracic back pain) Psychiatric/Neurological: No Symptoms Reported Physical Exam Physical Exam Vital Signs Vital Signs - First Documented 03/09/23 03/09/23 03/09/23 13:38 17:54 19:07 Temp 36.4 Pulse 90 Resp 16 B/P (MAP) 120/74 (89) Pulse Ox 100 O2 Delivery Room Air FiO2 21 Capillary Refill : Less Than 3 Seconds Height, Weight, BMI Height: '" Weight: lbs. oz. kg; 28.71 BMI Method: General Appearance: No Apparent Distress, WD/WN Eyes: Bilateral Eye PERRL, Bilateral Eye EOMI HEENT: PERRL/EOMI, TMs Normal, Normal ENT Inspection, Pharynx Normal Respiratory: Chest Non Tender, Lungs Clear, Normal Breath Sounds, No Accessory Muscle Use, No Respiratory Distress, Other (Right upper posterior neck tenderness) Cardiovascular: No Edema, No Gallop, No JVD, Tachycardia Gastrointestinal: Normal Bowel Sounds, Non Tender, Soft Extremity: Normal Capillary Refill, Normal Inspection, Normal Range of Motion, Non Tender, No Pedal Edema Neurologic/Psychiatric: Alert, Oriented x3, No Motor/Sensory Deficits, Normal Mood/Affect Skin: Normal Color, Warm/Dry Lymphatic: No Adenopathy Results Results/Procedures Labs Laboratory Tests 03/09/23 14:30 03/09/23 18:16 03/09/23 20:57 03/10/23 01:05 03/10/23 05:20 Patient resulted labs reviewed. Imaging: Reviewed Imaging Films, Reviewed Imaging Report Imaging NAME: JOURDAN MELVIN REC#: [id number] PT STATUS: REG ER : 1990 PHYSICIAN: SOFI ARAIZA ADMIT DATE: 03/09/23/ER Signed Date of Exam:03/09/23 CT MIKHAIL CHEST/NOANG ABD-PELV W INDICATION: Hemoptysis. History of pulmonary emboli. CTA chest, abdomen and pelvis Thin axial sections through the chest, abdomen and pelvis are obtained following intravenous contrast bolus. Multiplanar MIP images were reconstructed and reviewed. All CT scans use one or more of the following dose optimizing techniques: automated exposure control, MA and/or KvP adjustment based on patient size and exam type or iterative reconstruction. COMPARISON: None available. FINDINGS: CTA CHEST: There are age-indeterminate pulmonary emboli involving the bilateral lower lobes. Chronic appearing truncation in the right upper lobe pulmonary artery. Peripheral emboli within the distal right main pulmonary artery has a chronic appearance. No dilation of pulmonary trunk. No abnormal enlargement of the right ventricle. No pericardial effusion. No pleural effusion or pneumothorax. No supraclavicular or axillary lymphadenopathy. No mediastinal lymphadenopathy. There is 1.3 x 1.0 cm right hilar lymph node. No left hilar lymphadenopathy. Patchy consolidations are present in the periphery of the right lower lobe. No concerning focal osseous lesions in the chest. CT ABDOMEN AND PELVIS: There are 2 indeterminate hypodensities within the liver, the larger is centrally located measuring 1.8 x 1.6 cm. The spleen and pancreas are normal. No adrenal mass. No renal mass or obstructive uropathy. The urinary bladder is normally filled without wall thickening. Uterus and ovaries are normal. No bowel obstruction or pericolonic inflammatory change. A large amount of stool is present throughout the colon. Normal caliber abdominal aorta. The IVC appears patent. No concerning focal osseous lesions. No abdominal or pelvic lymphadenopathy. IMPRESSION: 1. Bilateral pulmonary emboli which are most likely chronic in nature. There is a possibility that a left lower lobe pulmonary embolus could be acute. Correlation with outside imaging would be most beneficial as patient has known pulmonary emboli per provided history. 2. No features of right ventricular strain or pulmonary hypertension. 3. Patchy right lower lobe consolidations are likely due to pneumonia. 4. Mildly enlarged right hilar lymph nodes may be reactive in nature. 5. There are 2 indeterminate liver lesions that are probably benign, but again correlation with outside imaging would be most beneficial. Dictated by: Dictated on workstation # [id number] Dict: 03/09/23 1546 Trans: 03/09/23 1723 [facility] [id number] Interpreted by: JORGE PERALTA MD Electronically signed by: JORGE PERALTA MD 03/09/23 1721 Short Stay Diagnosis Discharge Diagnosis-Short Stay Admission Diagnosis Hemoptysis DKA Type 1 DM Hyperkalemia Hx PE Hx liver lesions Hx thyroid cancer Substance abuse disorder Final Discharge Diagnosis Hemoptysis DKA Type 1 DM Hyperkalemia Hx PE Hx liver lesions Hx thyroid cancer Substance abuse disorder Conclusion Plan Hemoptysis -03/09 CTA chest/abd/pelvis --> bilateral pulmonary emboli that per the report was likely chronic in nature although unable to confirm chronicityin left lower lobe without previous imaging as well as patchy RLL consolidation likely due to pneumonia -RLL consolidations vs. cough vs. inhaled drug use -Vitals stable. Not requiring supplemental oxygen. Hx PE -Unclear whether acute vs. chronic PE. Therapuetic lovenox 80mg Q12 SC initiated. Will restart pt on eliquis 5mg PO BID RLL Pneumonia -CAP vs. aspiration given drug use? -S/P Lovenox regimen in the outpatient. May be residual findings from previous infection vs. acute. Was originally on Vancomycin 1g Q12 IV and Cefepime 1g Q6 IV, but will change to oral abx for discharge Typ 1 Diabetes DKA -On admission, Blood sugar 594, B-hydroxybutyrate of 3.03, AG 14. Her ABG was 7.36|36|80. K+ 5.9. Urine positive for ketones, glucose, and RBC. -Admitted and placed on DKA protocol. Blood sugars now low 100's. AG remains closed. K+ improved. -Resolved. Will need closer management of Diabetes upon D/C. Recommend establishing with PCP here. Hyperkalemia -5.9 in ED, now 3.7 following DKA protocol and insulin. Hx Liver Lesions -03/10 CT revealed 2 indeterminate liver lesions, likely benign. Recommend outpatient follow up. Hx Thyroid Cancer w/ thyroidectomy Substance Abuse disorder -Nicotine reported by patient. Toxicology (+) for opiates, tricyclics, amphetamines, and methamphetamines. LORI GARIBAY DO 03/11/23 0453: Supervisory-Addendum Brief Verification & Attestation Participated in pt care: history, MDM, physical Personally performed: exam, history, MDM, supervision of care Care discussed with: Medical Student Procedures: n/a Results interpretation: Verified all documentation Verification and Attestation of Medical Student E/M Service A medical student performed and documented this service in my presence. I reviewed and verified all information documented by the medical student and made modifications to such information, when appropriate. I personally performed the physical exam and medical decision making. Lori Garibay, Mar 11, 2023,04:53 BARBARA MCKEON Mar 10, 2023 13:10 LORI GARIBAY DO Mar 11, 2023 04:53
[2023-03-10] MEDS ORDERED: RT-ALBUTEROL SULF 2.5 MG/3 ML PRE-MIX VIAL INH SCH (14:00)
[2023-03-10] MEDS ORDERED: meTOprolol TARTRATE 50 MG (LOPRESSOR) TAB PO SCH (21:00)
[2023-03-10] MEDS ORDERED: MONTELUKAST 10 MG (SINGULAIR) TAB PO SCH (21:00)
[2023-03-10] MEDS ORDERED: QUEtiapine 25 MG (SEROquel) TAB IMMEDIATE RELEASE PO SCH (21:00)
[2023-03-10] MEDS ORDERED: APIXABAN 5 MG (ELIQUIS) TABLET PO SCH (21:00)
[2023-03-11] MEDS ORDERED: LEVOTHYROXINE 125 MCG (LEVOTHROID) TABLET PO SCH (06:30)
[2023-03-11] MEDS ORDERED: UMECLIDINIUM BROMIDE (INCRUSE ELLIPTA) 7'S IH SCH (08:00)
[2023-03-11] MEDS ORDERED: FOLIC ACID 1 MG TAB PO SCH (09:00)
[2023-03-11] MEDS ORDERED: FUROSEMIDE 20 MG (LASIX) TAB PO SCH (09:00)
== END 2023-03-10 13:40 | disposition home or self-care (01) | DRG 637 ==
LOC: EDUNIT# 13:29 → ER 13:34 → ICU 17:51
PROVIDERS: ADMIT Internal Medicine; ATTEND Internal Medicine
DX: E10.10 Type 1 diabetes mellitus with ketoacidosis without coma (principal); J18.9 Pneumonia, unspecified organism; E87.5 Hyperkalemia; Z86.711 Personal history of pulmonary embolism; E89.0 Postprocedural hypothyroidism; Z79.01 Long term (current) use of anticoagulants; F15.90 Other stimulant use, unspecified, uncomplicated; F17.210 Nicotine dependence, cigarettes, uncomplicated; F19.10 Other psychoactive substance abuse, uncomplicated
CPT/HCPCS: 36415; 36600; 71275; 74177; 80048; 80053; 80306; 81000; 82010; 82805; 82947; 83036; 83690; 83735; 83874; 83880; 84100; 84484; 85025; 85610; 85730; 87081; 93005; 93041